=== PATIENT | female | born 1975 | race African-American/Black ===

== ENCOUNTER 2018-09-26 06:49 | Emergency (ER) | payer OTHER ==
[2018-09-26 07:29] VITALS: BP 134/98; PULSE 91; TEMP 98.5; BMI 22.6
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
== END 2018-09-26 08:55 | disposition home or self-care (01) ==
LOC: JER 06:49
PROC: 0HQDXZZ Repair Right Lower Arm Skin, External Approach (ICD-10-PCS; principal; 2018-09-26)
PROC: BH47ZZZ Ultrasonography of Upper Extremity (ICD-10-PCS; 2018-09-26)
DX: S51.811A Laceration without foreign body of right forearm, initial encounter (principal); W25.XXXA Contact with sharp glass, initial encounter; Y93.89 Activity, other specified; Y92.038 Other place in apartment as the place of occurrence of the external cause; Y99.8 Other external cause status
CPT/HCPCS: 12002-25; 76882-TC-LT-FY; 99283-25

== ENCOUNTER 2018-12-26 13:23 | Observation (INO) | payer OTHER ==
[2018-12-26 13:28] VITALS: BMI 29.0
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
[2018-12-26] MEDS ORDERED: SODIUM CHLORIDE 1,000 ML IV STA (14:18)
[2018-12-26 14:52] LABS: BASO % 0.9 % (0-2.0); EOS % 0.4 % (0-4.5); HEMATOCRIT 40.2 % (32.4-45.2); HEMOGLOBIN 13.2 GM/dL (10.7-15.3); MCH 31.8 pg (25.7-33.7); MCHC 32.8 g/dl (32.0-36.0); MEAN CELL VOLUME 96.8 fl (80-96); MEAN PLT VOLUME 9.1 fl (7.5-11.1); MONO % 6.8 % (3.8-10.2); NEUT % 46.9 % (42.8-82.8); PLATELET COUNT 259 K/MM3 (134-434); RBC 4.16 M/mm3 (3.60-5.2); WHITE BLOOD COUNT 5.3 K/mm3 (4.0-10.0)
[2018-12-26 15:01] LABS: METHADONE, UR NEGATIVE ng/ml (CUTOFF=300); OPIATES, URI NEGATIVE ng/ml (CUTOFF=300); PHENCYCLIDINE,URINE NEGATIVE ng/ml (CUTOFF=25); URINE AMPHETAMINES NEGATIVE ng/ml (CUTOFF=500); URINE BARBITURATES NEGATIVE ng/ml (CUTOFF=200); URINE BENZODIAZEPINES NEGATIVE ng/ml (CUTOFF=200)
[2018-12-26 15:02] LABS: URINE APPEARANCE CLEAR; URINE BILIRUBIN NEGATIVE (NEGATIVE); URINE COLOR YELLOW; URINE GLUCOSE (UA) NEGATIVE (NEGATIVE)
[2018-12-26 15:03] LABS: COCAINE, UR POSITIVE ng/ml (CUTOFF=300); URINE KETONE NEGATIVE (NEGATIVE); URINE LEUK ESTERASE TRACE (NEGATIVE); URINE NITRITE NEGATIVE (NEGATIVE); URINE PROTEIN NEGATIVE (NEGATIVE); URINE UROBILINOGEN 0.2 mg/dL (0.2-1.0)
[2018-12-26 15:17] LABS: EPI CELLS 4.9 /HPF (0-5/HPF); HYALINE CASTS 1 /lpf (0-8); URINE BACTERIA 128.3 /hpf (NEGATIVE); URINE RBC 1 /hpf (0-4); URINE WBC 2 /hpf (0-5)
[2018-12-26 15:40] LABS: BILIRUBIN,TOTAL 0.3 mg/dL (0.2-1); BLOOD UREA NITROGEN 7.2 mg/dL (7-18); CALCIUM 8.7 mg/dL (8.5-10.1); CREATININE 0.8 mg/dL (0.55-1.3); POTASSIUM 4.6 mmol/L (3.5-5.1); TOT PROT 7.9 g/dl (6.4-8.2)
--- NOTE | 2018-12-26 16:31 | PDOC ---
Documentation entered by Mich Monroe SCRIBE, acting as scribe for Marvin Maloney MD. Marvin Maloney MD: This documentation has been prepared by the Fer vásquez Daniel, SCRIBE, under my direction and personally reviewed by me in its entirety. I confirm that the documentation accurately reflects all work, treatment, procedures, and medical decision making performed by me. Attending Attestation - Resident Resident Name: Mykel Hernandez - ED Attending Attestation I have performed the following: I have examined & evaluated the patient, The case was reviewed & discussed with the resident, I agree w/resident's findings & plan, Exceptions are as noted - HPI HPI: 12/26/18 14:12 The patient is a 43 year old female with a past medical history of anemia, bulimia, and cocaine (last use 3 days ago) and alcohol (last drink this morning) , here today for evaluation of syncopal episodes. The patient reports that she had 2 syncopal episodes today. The first was after she visited her grandfather and the second when she was getting a sandwich. Pt denies any prodromes of lightheadedness or palpitations. Pt does not know if she hit her head or not. Patient denies headache, lightheadedness. Denies fever, chills. Denies chest pain, shortness of breath. Denies nausea, vomiting, diarrhea, abdominal pain. Denies facial droop, weakness, tongue biting, urinary incontinence. Allergies: NKA - Physicial Exam PE: 12/26/18 15:35 "GENERAL: Awake, alert, and fully oriented, in no acute distress. HEAD: No signs of trauma EYES: PERRLA, EOMI, sclera anicteric, conjunctiva clear ENT: Auricles normal inspection, hearing grossly normal, nares patent, oropharynx clear without exudates. Moist mucosa NECK: Nontender, no stepoffs, Normal ROM, supple, no lymphadenopathy, JVD, or masses LUNGS: Breath sounds equal, clear to auscultation bilaterally. No wheezes, and no crackles HEART: Regular rate and rhythm, normal S1 and S2, no murmurs, rubs or gallops ABDOMEN: Soft, nontender, normoactive bowel sounds. No guarding, no rebound. No masses EXTREMITIES: Normal range of motion, no edema. No clubbing or cyanosis. No cords, erythema, or tenderness NEUROLOGICAL: Cranial nerves II through XII intact. 5/5 strength and sensation in all extremities, Normal speech, normal gait, normal cerebellar function SKIN: Warm, Dry, normal turgor, no rashes or lesions noted. - Medical Decision Making 12/26/18 15:36 43 F with syncope x 2 today in the setting of ETOH use. Pt with normal EKG, no evidence of arrhythmia. Suspect syncope was 2/2 substance abuse. Pt with stable vitals in ED. Normal neuro exam. Appears well hydrated. - Labs, trop - CT head - IVF 12/26/18 16:[address] head unremarkable
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
[2018-12-26 17:54] LABS: INR 1.06 (0.83-1.09); PROTHROMBIN TIME (PATIENT) 12.5 SEC (9.7-13.0)
[2018-12-26 17:56] LABS: ACTIVATED PTT 32.5 SECONDS (25.2-36.5)
[2018-12-26] MEDS ORDERED: MELATONIN 5 MG TABLETS PO PRN (22:00)
--- NOTE | 2018-12-26 22:16 | EKG ---
Test Reason : Blood Pressure : / mmHG Vent. Rate : 077 BPM Atrial Rate : 077 BPM P-R Int : 150 ms QRS Dur : 078 ms QT Int : 382 ms P-R-T Axes : 064 074 057 degrees QTc Int : 432 ms NORMAL SINUS RHYTHM POSSIBLE LEFT ATRIAL ENLARGEMENT BORDERLINE ECG WHEN COMPARED WITH ECG OF 01-MAY-1998 08:40, T WAVE INVERSION LESS EVIDENT IN ANTERIOR LEADS Confirmed by MD CHAZ, EUSEBIO ([id number]) on 12/26/2018 10:16:07 PM Referred By: Confirmed By:EUSEBIO WARE MD
[2018-12-27] MEDS ORDERED: ACETAMINOPHEN 325 MG TABLET (FP) PO PRN (00:48)
[2018-12-27 06:47] LABS: HEMATOCRIT 36.8 % (32.4-45.2); HEMOGLOBIN 12.4 GM/dL (10.7-15.3); MCH 32.6 pg (25.7-33.7); MCHC 33.7 g/dl (32.0-36.0); MEAN CELL VOLUME 96.7 fl (80-96); MEAN PLT VOLUME 9.4 fl (7.5-11.1); PLATELET COUNT 232 K/MM3 (134-434); RDW 12.6 % (11.6-15.6)
[2018-12-27 07:34] LABS: ANION GAP 4 MMOL/L (8-16); BLOOD UREA NITROGEN 14.9 mg/dL (7-18); CALCIUM 9.2 mg/dL (8.5-10.1); CHLORIDE 106 mmol/L (98-107); CO2 31 mmol/L (21-32); CREATININE 0.8 mg/dL (0.55-1.3); GLUCOSE,RANDOM 97 mg/dL (74-106); MAGNESIUM 1.8 mg/dL (1.8-2.4); PHOSPHOROUS 4.4 mg/dL (2.5-4.9); POTASSIUM 4.3 mmol/L (3.5-5.1); SODIUM 141 mmol/L (136-145)
--- NOTE | 2018-12-27 09:52 | PN ---
Progress Note, Physician Chief Complaint: pt doing better, but still has pain in the R hand , its still swollen, - Current Medication List Current Medications: Active Medications Folic Acid (Folic Acid -) 1 mg PO DAILY [facility] Last Admin: 12/27/18 09:29 Dose: 1 mg Melatonin (Melatonin) 5 mg PO HS PRN PRN Reason: INSOMNIA Pantoprazole Sodium (Protonix -) 40 mg PO DAILY [facility] Last Admin: 12/27/18 09:29 Dose: 40 mg Thiamine HCl (Vitamin B1 -) 100 mg PO DAILY [facility] Last Admin: 12/27/18 09:29 Dose: 100 mg - Objective Vital Signs: Vital Signs Temperature 98.4 F 12/27/18 08:40 Pulse Rate 67 12/27/18 08:40 Respiratory Rate 18 12/27/18 08:40 Blood Pressure 125/71 12/27/18 08:40 O2 Sat by Pulse Oximetry (%) 99 12/27/18 08:40 Constitutional: Yes: Well Nourished Eyes: Yes: WNL HENT: Yes: WNL Neck: Yes: Supple Cardiovascular: Yes: Regular Rate and Rhythm Respiratory: Yes: Regular, CTA Bilaterally Gastrointestinal: Yes: WNL, Normal Bowel Sounds Extremities: Yes: Other (pain R , middle finger, and swelling,) Labs: CBC, BMP 12/27/18 05:36 12/27/18 05:36 INR, PTT INR 1.06 (0.83-1.09) 12/26/18 14:30 Problem List - Problems (1) Syncope and collapse Code(s): R55 - SYNCOPE AND COLLAPSE (2) Alcohol dependence with uncomplicated withdrawal Code(s): F10.230 - ALCOHOL DEPENDENCE WITH WITHDRAWAL, UNCOMPLICATED (3) Cocaine dependence Code(s): F14.20 - COCAINE DEPENDENCE, UNCOMPLICATED Qualifiers: Substance use status: uncomplicated Qualified Code(s): F14.20 - Cocaine dependence, uncomplicated (4) HTN (hypertension) Code(s): I10 - ESSENTIAL (PRIMARY) HYPERTENSION Qualifiers: Hypertension type: essential hypertension Qualified Code(s): I10 - Essential (primary) hypertension Impression/Plan Impression/Plan: SSESSMENT/PLAN: Syncopal episode; r/o cardiogenic cause --Likely related to nutritional and hydration deficits, r/o cardiac cause, --Echocardiogram ordered --Cardiac monitoring no more orthostsis, eating well and tolerating, --Thiamine and folic acid daily to begin --Monitor for signs of withdrawal: CIWA 0 --If withdrawal symptoms occur can use Librium protocol Mild intermittent Asthma --Continue albuterol neb q6h PRN for wheezing if needed --Continue Protonix 40mg qdaily --B12 and folate ordered with AM labs --A1c ordered with AM labs Polysubstance abuse --Counselled on importance of cocaine and alcohol cessation --Will benefit from psychiatry and addiction referrals on outpatient basis GERD stable continue PPI FEN: Fluids: Encourage PO Electrolyte abnormalities: None Nutrition: Regular PPX: DVt - Early ambulation GI - Protonix on board Dispo: Tele observation Drew Wooten DO - IM PGY-3 Visit type Visit type - Emergency Visit Emergency Visit: No - New Patient This patient is new to me today: Yes Date on this admission: 12/27/18 - Critical Care Critical Care patient: No - Discharge Referral Referred to [facility] Med [facility] Yes
[2018-12-27] MEDS ORDERED: FOLIC ACID 1 MG TABLET (FP) PO SCH (10:00)
[2018-12-27] MEDS ORDERED: THIAMINE HCL 100 MG TABLET (FP) PO SCH (10:00)
[2018-12-27] MEDS ORDERED: PANTOPRAZOLE 40 MG TABLET (FP) PO SCH (10:00)
[2018-12-27] MEDS: IBUPROFEN 400 MG TABLET (FP) PO SCH ×2 (11:16→15:21)
[2018-12-27 18:12] VITALS: BP 134/74; PULSE 77; TEMP 98.3
== END 2018-12-27 17:30 | disposition left against medical advice (07) ==
LOC: JER 13:23 → JERBED 16:36 → J4S 18:44
PROVIDERS: ADMIT Internal Medicine; ATTEND Internal Medicine
PROC: 3E0337Z Introduction of Electrolytic and Water Balance Substance into Peripheral Vein, Percutaneous Approach (ICD-10-PCS; principal; 2018-12-26)
DX: R55 Syncope and collapse (principal); F10.230 Alcohol dependence with withdrawal, uncomplicated; F14.20 Cocaine dependence, uncomplicated; F17.210 Nicotine dependence, cigarettes, uncomplicated; I10 Essential (primary) hypertension; J45.20 Mild intermittent asthma, uncomplicated; K21.9 Gastro-esophageal reflux disease without esophagitis; D75.89 Other specified diseases of blood and blood-forming organs; M79.641 Pain in right hand
CPT/HCPCS: 36415; 70450-TC; 71045-TC-FY; 73130-TC-RT-FY; 80048; 80053; 80307; 81003; 82550; 82553; 82607; 82746; 83036; 83735; 84100; 84443; 84484; 84703; 85025; 85027; 85610; 85730; 87086; 93005; 93010; 96360; 99285-25; G0378; J7030

== ENCOUNTER 2019-04-11 13:40 | Emergency (ER) | payer OTHER ==
[2019-04-11 14:18] VITALS: BMI 23.8
--- NOTE | 2019-04-11 15:12 | PDOC ---
History of Present Illness - General Chief Complaint: Chest Pain Stated Complaint: CHEST PAIN Time Seen by Provider: 04/11/19 14:24 History Source: Patient Exam Limitations: No Limitations Past History - Past Medical History Allergies/Adverse Reactions: Allergies Allergy/AdvReac Type Severity Reaction Status Date / Time No Known Allergies Allergy Verified 12/26/18 13:28 Home Medications: Ambulatory Orders Iron 18 mg PO DAILY 12/27/18 Metronidazole 500 mg PO BID 04/11/19 Anemia: No Asthma: Yes (uses albuterol and maintenence med) Cancer: No Cardiac Disorders: No CVA: No COPD: No CHF: No DVT: No Dementia: No Diabetes: No Dialysis: No GI Disorders: No (acid reflux) Disorders: Yes HTN: No Hypercholesterolemia: No Kidney Stones: No Liver Disease: No Psychiatric Problems: No Seizures: No Thyroid Disease: No Lung CA: No Other medical history: Bolimic - Surgical History Abdominal Surgery: No Appendectomy: No Cardiac Surgery: No Cholecystectomy: No Gastric Stapling: No GI Surgery: No Lung Surgery: No Neurologic Surgery: No Orthopedic Surgery: No - Reproductive History PID: No - Immunization History Immunization Up to Date: Yes - Psycho Social/Smoking Cessation Hx Smoking History: Never smoked Have you smoked in the past 12 months: Yes Number of Cigarettes Smoked Daily: 10 'Breaking Loose' booklet given: 02/09/16 Hx Alcohol Use: Yes Drug/Substance Use Hx: Yes (coccaine) Substance Use Type: Alcohol, Cocaine Hx Substance Use Treatment: Yes (IOP) *Physical Exam - Vital Signs Last Vital Signs Temp Pulse Resp BP Pulse Ox 98.5 F 91 H 19 119/77 99 04/11/19 14:12 04/11/19 14:12 04/11/19 14:12 04/11/19 14:12 04/11/19 14:12 - Physical Exam General Appearance: No: Apparent Distress HEENT: positive: Other (no head trauma) Respiratory/Chest: positive: Lungs Clear, Normal Breath Sounds. negative: Respiratory Distress Cardiovascular: positive: Regular Rhythm, Regular Rate, S1, S2. negative: Murmur Gastrointestinal/Abdominal: positive: Normal Bowel Sounds, Soft. negative: Tender, Distended, Guarding, Rebound Integumentary: positive: Normal Color Neurologic: positive: Fully Oriented, Alert, Motor Strength 5/5 ED Treatment Course - LABORATORY CBC & Chemistry Diagram: 04/11/19 15:00 04/11/19 15:07 - RADIOLOGY Radiology Studies Ordered: Category Date Time Status CHEST PA & LAT [RAD] Stat Radiology 04/11/19 14:40 Ordered Medical Decision Making - Medical Decision Making 43 y/o F hx of substance abuse (crack cocaine, alcohol for years), asthma, anemia, GERD, bulimia, fibroid, current smoker (>1 ppd for >20 years) presents with epigastric pain radiating up chest which started around 1:30 PM. Mentions was using cocaine and alcohol all day yesterday and passed out twice. Mentions passing out last night around 12 AM, then waking up, and then passing out again around 6 AM while she was walking. Was admitted 12/2018 for similar issue but patient left the hospital at that time. Denies fever, URI sxs, sob, abd pain, n/ v. EKG: NSR at 86 bpm, no ST-T changes Passing out could be related to drug use; no evidence of trauma No concern for ICH (no head trauma on exam, patient alert, coherent and ambulating around ED) Consider ACS Plan: Labs, CXR Will get 2 sets of troponin D/W Dr. Mendoza 04/11/19 15:08 Labs pending Will need second set as well Signed out to CARLOS Everett 04/11/19 16:04 Discharge - Discharge Information Problems reviewed: Yes Clinical Impression/Diagnosis: Chest pain Qualifiers: Chest pain type: other chest pain Qualified Code(s): R07.89 - Other chest pain ; R07.8 - Other chest pain - Follow up/Referral - Patient Discharge Instructions - Post Discharge Activity
[2019-04-11 15:39] LABS: BASO % 1.1 % (0-2.0); EOS % 0.3 % (0-4.5); HEMATOCRIT 37.3 % (32.4-45.2); HEMOGLOBIN 12.3 GM/dL (10.7-15.3); LYMPH % 24.4 % (8-40); MCH 31.8 pg (25.7-33.7); MEAN CELL VOLUME 96.2 fl (80-96); MEAN PLT VOLUME 9.7 fl (7.5-11.1); MONO % 8.4 % (3.8-10.2); NEUT % 65.8 % (42.8-82.8); PLATELET COUNT 286 K/MM3 (134-434); RBC 3.87 M/mm3 (3.60-5.2); RDW 12.3 % (11.6-15.6); WHITE BLOOD COUNT 5.3 K/mm3 (4.0-10.0)
--- NOTE | 2019-04-11 16:18 | EKG ---
Test Reason : Blood Pressure : / mmHG Vent. Rate : 086 BPM Atrial Rate : 086 BPM P-R Int : 142 ms QRS Dur : 082 ms QT Int : 374 ms P-R-T Axes : 065 066 056 degrees QTc Int : 447 ms NORMAL SINUS RHYTHM LEFT ATRIAL ENLARGEMENT BORDERLINE ECG WHEN COMPARED WITH ECG OF 26-DEC-2018 13:27, NO SIGNIFICANT CHANGE WAS FOUND Confirmed by MD BINA, KEYLA ([id number]) on 04/11/2019 4:17:46 PM Referred By: Confirmed By:KEYLA CURRAN MD
[2019-04-11 16:21] LABS: ALBUMIN 3.8 g/dl (3.4-5.0); ALK PHOS 74 U/L (45-117); ANION GAP 8 MMOL/L (8-16); BILIRUBIN,TOTAL 0.4 mg/dL (0.2-1); BLOOD UREA NITROGEN 8.7 mg/dL (7-18); CALCIUM 8.8 mg/dL (8.5-10.1); CHLORIDE 104 mmol/L (98-107); CO2 25 mmol/L (21-32); CREATININE 0.7 mg/dL (0.55-1.3); GLUCOSE,RANDOM 114 mg/dL (74-106); POTASSIUM 4.1 mmol/L (3.5-5.1); SGOT/AST 195 U/L (15-37); SGPT/ALT 123 U/L (13-61); SODIUM 137 mmol/L (136-145); TOT PROT 7.6 g/dl (6.4-8.2)
--- NOTE | 2019-04-11 19:36 | PDOC ---
*Physical Exam - Vital Signs Last Vital Signs Temp Pulse Resp BP Pulse Ox 98.5 F 91 H 19 119/77 100 04/11/19 14:12 04/11/19 14:12 04/11/19 14:12 04/11/19 14:12 04/11/19 15:00 ED Treatment Course - LABORATORY CBC & Chemistry Diagram: 04/11/19 15:00 04/11/19 15:07 - ADDITIONAL ORDERS Additional order review: Laboratory Results 04/11/19 04/11/19 04/11/19 17:50 15:07 15:00 Sodium 137 Potassium 4.1 Chloride 104 Carbon Dioxide 25 Anion Gap 8 BUN 8.7 Creatinine 0.7 Est GFR (CKD-EPI)AfAm 123.86 Est GFR (CKD-EPI)NonAf 106.87 Random Glucose 114 H Calcium 8.8 Total Bilirubin 0.4 AST 195 H ALT 123 H Alkaline Phosphatase 74 Creatine Kinase 329 H Troponin I < 0.02 < 0.02 Total Protein 7.6 Albumin 3.8 Serum , Qual Negative 04/11/19 15:00 RBC 3.87 MCV 96.2 H MCHC 33.0 RDW 12.3 MPV 9.7 Neutrophils % 65.8 D Lymphocytes % 24.4 D Monocytes % 8.4 Eosinophils % 0.3 Basophils % 1.1 Medical Decision Making - Medical Decision Making 04/11/19 19:34 Patient with endorsed to me to repeat troponin and disposition. Patient seen and evaluated in no acute distress. Denies any chest pain any shortness of breath. Troponin repeated and noted to be negative. Will discharge I discussed the physical exam findings, ancillary test results and final diagnoses with the patient. I answered all of the patient's questions. The patient was satisfied with the care received and felt comfortable with the discharge plan and treatment plan. The Patient agrees to follow up with the primary care physician within 24-72 hours. Discharge - Discharge Information Problems reviewed: Yes Clinical Impression/Diagnosis: Chest pain Qualifiers: Chest pain type: other chest pain Qualified Code(s): R07.89 - Other chest pain Condition: Stable Disposition: HOME - Follow up/Referral - Patient Discharge Instructions Patient Printed Discharge Instructions: DI for Chest Pain Additional Instructions: Your Discharge Instructions: You must call primary care physician within 24 hours to arrange follow-up. Return to the Emergency Department with any new, persistent or worsening symptoms, for fever, chills, SOB, dizziness or any other concerning changes that may occur. - Post Discharge Activity
[2019-04-11 20:11] VITALS: BP 122/72; PULSE 89; TEMP 98.1
== END 2019-04-11 20:11 | disposition home or self-care (01) ==
LOC: JER 13:40
DX: R07.89 Other chest pain (principal); J45.909 Unspecified asthma, uncomplicated; D64.9 Anemia, unspecified; K21.9 Gastro-esophageal reflux disease without esophagitis; F10.10 Alcohol abuse, uncomplicated; F14.10 Cocaine abuse, uncomplicated; F17.210 Nicotine dependence, cigarettes, uncomplicated
CPT/HCPCS: 36415; 71046-TC-FY; 80053; 82550; 82553; 84484; 84703; 85025; 93005; 93010; 99283-25

== ENCOUNTER 2020-04-08 16:11 | Emergency (ER) | payer OTHER ==
[2020-04-08 16:46] VITALS: BP 137/53; PULSE 82; TEMP 97.9; BMI 25.8
== END 2020-04-08 18:07 | disposition home or self-care (01) ==
LOC: JCOVINFU 16:11
DX: R05 Cough (principal); Z20.822 Contact with and (suspected) exposure to COVID-19
CPT/HCPCS: 71046-TC-FY; 87804; 99284-25; C9803; U0003

== ENCOUNTER 2020-11-07 15:09 | Emergency (ER) | payer OTHER ==
[2020-11-07 15:34] VITALS: BP 124/89; PULSE 83; TEMP 98.1; BMI 26.6
[2020-11-07 17:10] LABS: BASO % 1.1 % (0-2.0); EOS % 0.5 % (0-4.5); HEMOGLOBIN 11.1 GM/dL (10.7-15.3); LYMPH % 40.5 % (8-40); MCH 28.2 pg (25.7-33.7); MCHC 32.8 g/dl (32.0-36.0); MEAN PLT VOLUME 8.6 fl (7.5-11.1); NEUT % 48.9 % (42.8-82.8); PLATELET COUNT 266 10^3/uL (134-434); RBC 3.95 M/mm3 (3.60-5.2); RDW 17.1 % (11.6-15.6); WHITE BLOOD COUNT 5.2 K/mm3 (4.0-10.0)
[2020-11-07 17:15] LABS: CHLORIDE 104 mmol/L (98-107); SODIUM 139 mmol/L (136-145)
[2020-11-07 17:17] LABS: ALBUMIN 3.7 g/dl (3.4-5.0); ANION GAP 9 MMOL/L (8-16); BLOOD UREA NITROGEN 8.9 mg/dL (7-18); CALCIUM 8.7 mg/dL (8.5-10.1); CO2 26 mmol/L (21-32); GLUCOSE,RANDOM 88 mg/dL (74-106)
[2020-11-07 17:18] LABS: MAGNESIUM 2.2 mg/dL (1.8-2.4)
[2020-11-07 17:20] LABS: SGOT/AST 57 U/L (15-37); SGPT/ALT 48 U/L (13-61)
[2020-11-07 17:21] LABS: CREATININE 0.9 mg/dL (0.55-1.3); PHOSPHOROUS 3.4 mg/dL (2.5-4.9)
[2020-11-07 17:23] LABS: ALK PHOS 89 U/L (45-117); BILIRUBIN,TOTAL 0.4 mg/dL (0.2-1); TOT PROT 7.8 g/dl (6.4-8.2)
[2020-11-07 17:26] LABS: N-TERMINAL BNP 19.8 pg/ml (5-125)
== END 2020-11-07 19:16 | disposition home or self-care (01) ==
LOC: JER 15:09 → UNDOADMOB 16:14 → JERBED 16:14
DX: R55 Syncope and collapse (principal)
CPT/HCPCS: 36415; 70450-TC; 71046-TC-FY; 80053; 80307; 82550; 82553; 83735; 83880; 84100; 84484; 84703; 85025; 93005; 93010; 99284-25; C9803; U0003; U0005

== ENCOUNTER 2021-07-13 04:39 | Emergency (ER) | payer OTHER ==
[2021-07-13 04:48] VITALS: BMI 22.6
[2021-07-13] MEDS ORDERED: LACTATED RINGERS SOLUTION 1000 ML INFUS.BAG IV ONE (05:07)
[2021-07-13] MEDS ORDERED: ONDANSETRON 4 MG/2 ML VIAL IVPUSH ONE (05:07)
[2021-07-13] MEDS ORDERED: ACETAMINOPHEN 1000 MG/100 ML BAG IVPB ONE (05:07)
[2021-07-13] MEDS ORDERED: MAG HYDROX/AL HYDROX/SIMETH 30 ML UNIT-DOSE CUP PO ONE (05:12)
[2021-07-13] MEDS ORDERED: FAMOTIDINE 20 MG/50 ML IVPB 20 MG/50 ML MG IVPB ONE (05:12)
[2021-07-13] MEDS ORDERED: SUCRALFATE 1 GM TABLET (FP) PO ONE (05:12)
[2021-07-13] MEDS ORDERED: morphine CARPU-JECT 4 MG/1 ML DISP.SYRIN IVPUSH ONE (05:19)
[2021-07-13] MEDS ORDERED: ACETAMINOPHEN INJECTION 100 ML IVPB ONE (05:28)
[2021-07-13] MEDS ORDERED: morphine SULFATE 4 MG/ML VIAL ONE (05:28)
[2021-07-13] MEDS ORDERED: SUCRALFATE 1 GM TABLET (FP) ONE (05:28)
[2021-07-13] MEDS ORDERED: FAMOTIDINE 10 MG/ML VIAL IVPB ONE (05:29)
[2021-07-13] MEDS ORDERED: MAG HYDROX/AL HYDROX/SIMETH 30 ML UNIT-DOSE CUP ONE (05:29)
[2021-07-13] MEDS ORDERED: ONDANSETRON 4 MG/2 ML VIAL ONE (05:29)
[2021-07-13 07:38] LABS: BASO % 0.9 % (0-2.0); EOS % 0.6 % (0-4.5); HEMATOCRIT 38.7 % (32.4-45.2); HEMOGLOBIN 12.7 GM/dL (10.7-15.3); MCH 30.8 pg (25.7-33.7); MCHC 32.9 g/dl (32.0-36.0); MEAN CELL VOLUME 93.6 fl (80-96); MEAN PLT VOLUME 9.4 fl (7.5-11.1); MONO % 8.2 % (3.8-10.2); NEUT % 50.3 % (42.8-82.8); PLATELET COUNT 254 10^3/uL (134-434); RBC 4.13 M/mm3 (3.60-5.2); RDW 14.2 % (11.6-15.6); WHITE BLOOD COUNT 3.9 K/mm3 (4.0-10.0)
[2021-07-13 08:08] LABS: ALBUMIN 3.5 g/dl (3.4-5.0); BLOOD UREA NITROGEN 11.8 mg/dL (7-18); MAGNESIUM 2.1 mg/dL (1.8-2.4)
[2021-07-13 08:11] LABS: CREATININE 0.6 mg/dL (0.55-1.3)
[2021-07-13 08:12] LABS: TOT PROT 7.2 g/dl (6.4-8.2)
[2021-07-13 08:13] LABS: BILIRUBIN,TOTAL 0.3 mg/dL (0.2-1)
[2021-07-13 11:35] VITALS: BP 128/89; PULSE 71; TEMP 97.7
== END 2021-07-13 12:05 | disposition home or self-care (01) ==
LOC: JER 04:39
PROC: 3E033GC Introduction of Other Therapeutic Substance into Peripheral Vein, Percutaneous Approach (ICD-10-PCS; principal; 2021-07-13)
DX: R10.84 Generalized abdominal pain (principal); R11.10 Vomiting, unspecified
CPT/HCPCS: 36415; 71045-TC-FY; 71260-TC; 74177-TC; 80053; 83690; 83735; 84484; 84703; 85025; 93005; 93010; 99285-25; Q9967